=== PATIENT | female | born 1940 | race Caucasian/White ===

== ENCOUNTER 2019-11-04 12:52 | Inpatient (IN) | payer OTHER, SELFPAY ==
[~2019-11-04] VITALS: Ht 162.6 cm; Wt 50.3 kg
[2019-11-04 13:15] VITALS: Ht 162.6 cm; Wt 50.3 kg
[2019-11-04 14:33] LABS: BASOPHIL % 0.3 % (0-2)
[2019-11-04 14:38] LABS: PLATELET COUNT 115 x10^3mcL (130-400); RED CELL DISTRIBUTION WIDTH 15.3 % (11.5-14.5)
[2019-11-04 14:58] LABS: CALCIUM 7.9 mg/dL (8.5-10.1); CARBON DIOXIDE 26.9 mmol/L (21-32); CHLORIDE SERUM 95 mmol/L (98-107); CREATININE SERUM 0.9 mg/dL (0.6-1.0); GLUCOSE SERUM 81 mg/dL (74-106); POTASSIUM SERUM 3.8 mmol/L (3.5-5.1); SODIUM SERUM 131 mmol/L (136-145)
[2019-11-04 15:02] LABS: ALKALINE PHOSPHATASE 86 U/L (46-116); ALT/SGPT 32 U/L (14-59); AST/SGOT 64 U/L (15-37); BILIRUBIN TOTAL 0.4 mg/dL (0.20-1.00); C REACTIVE PROTEIN 7.2 mg/dL (<=0.9); LACTIC DEHYDROGENASE (LDH) 316 U/L (100-190); TOTAL PROTEIN, SERUM 6.7 g/dL (6.4-8.2)
[2019-11-04 15:05] LABS: ALBUMIN 3.2 g/dL (3.4-5.0)
[2019-11-05] MEDS ORDERED: TIROSINT13 MCG PO (03:30)
[2019-11-05] MEDS ORDERED: ZYRTEC ALLERGY10 MG PO (03:30)
[2019-11-05] MEDS ORDERED: ASPIRIN CHILDRE81 MG PO (03:30)
[2019-11-05] MEDS ORDERED: SEROQUEL50 M1 PO (03:31)
[2019-11-05] MEDS ORDERED: ARICEPT5 MG PO (03:31)
[2019-11-05] MEDS ORDERED: DEPAKOTE125 MG PO (03:31)
[2019-11-05] MEDS ORDERED: NAMENDA5 M1 PO (03:32)
[2019-11-05] MEDS ORDERED: ZESTRIL30 MG PO (03:32)
[2019-11-05] MEDS ORDERED: ZOLOFT25 MG PO (03:32)
[2019-11-05] MEDS ORDERED: PEPCID AC20 M2 PO (03:32)
[2019-11-05 08:18] LABS: ALKALINE PHOSPHATASE 66 U/L (46-116); ALT/SGPT 28 U/L (14-59); AST/SGOT 56 U/L (15-37); BILIRUBIN TOTAL 0.2 mg/dL (0.20-1.00); C REACTIVE PROTEIN 6.9 mg/dL (<=0.9); CALCIUM 7.5 mg/dL (8.5-10.1); CARBON DIOXIDE 23.9 mmol/L (21-32); CHLORIDE SERUM 100 mmol/L (98-107); CREATININE SERUM 0.9 mg/dL (0.6-1.0); GLUCOSE SERUM 114 mg/dL (74-106); MAGNESIUM 2.1 mg/dL (1.8-2.4); POTASSIUM SERUM 3.7 mmol/L (3.5-5.1); SODIUM SERUM 136 mmol/L (136-145)
[2019-11-05 08:25] LABS: ALBUMIN 2.7 g/dL (3.4-5.0); TOTAL PROTEIN, SERUM 5.8 g/dL (6.4-8.2)
[2019-11-05 09:51] LABS: BASOPHIL % 0.1 % (0-2)
[2019-11-05 09:53] LABS: RED CELL DISTRIBUTION WIDTH 15.4 % (11.5-14.5)
[2019-11-05 09:55] LABS: PLATELET COUNT 90 x10^3mcL (130-400)
[2019-11-06 05:21] LABS: BASOPHIL % 0.2 % (0-2)
[2019-11-06 05:22] LABS: ALKALINE PHOSPHATASE 62 U/L (46-116); ALT/SGPT 25 U/L (14-59); AST/SGOT 58 U/L (15-37); BILIRUBIN TOTAL 0.38 mg/dL (0.20-1.00); CALCIUM 7.5 mg/dL (8.5-10.1); CHLORIDE SERUM 101 mmol/L (98-107); CREATININE SERUM 0.6 mg/dL (0.6-1.0); GLUCOSE SERUM 93 mg/dL (74-106); MAGNESIUM 1.9 mg/dL (1.8-2.4); PHOSPHOROUS 2.9 mg/dL (2.5-4.9); PLATELET COUNT 90 x10^3mcL (130-400); POTASSIUM SERUM 3.7 mmol/L (3.5-5.1); RED CELL DISTRIBUTION WIDTH 14.8 % (11.5-14.5); SODIUM SERUM 134 mmol/L (136-145)
[2019-11-06 05:24] LABS: ALBUMIN 2.4 g/dL (3.4-5.0); TOTAL PROTEIN, SERUM 5.3 g/dL (6.4-8.2)
[2019-11-06 10:42] LABS: FREE T4 0.83 ng/dL (0.76-1.46)
[2019-11-06 23:59] LABS: UA SPECIFIC GRAVITY 1.025 (1.005-1.035); microscopic required? YES; urine erythrocyte 1+ (NEGATIVE)
[2019-11-07 00:03] LABS: AMPHETAMINE QUAL UR NONE DETECTED (See below)
[2019-11-07 09:27] VITALS: BP 98/43
[2019-11-07 09:46] VITALS: BP 109/45
[2019-11-07 12:21] VITALS: BP 104/43
[2019-11-07 15:49] VITALS: BP 92/44
[2019-11-07 16:06] LABS: PLATELET COUNT 98 x10^3mcL (130-400); RED CELL DISTRIBUTION WIDTH 14.9 % (11.5-14.5)
[2019-11-07 17:19] LABS: BAND NEUTROPHIL 3 % (0-10); MONOCYTE 1 % (0-7); SEGMENTED NEUTROPHILS 81 % (37-75)
[2019-11-07 17:20] LABS: rbc morphology (normal/abnorm) NORMAL (NORMAL)
[2019-11-07 17:51] VITALS: BP 117/52
[2019-11-07 20:15] VITALS: BP 116/56
[2019-11-08 05:46] VITALS: BP 112/40
[2019-11-08 06:32] LABS: BASOPHIL % 0.1 % (0-2)
[2019-11-08 06:42] LABS: PLATELET COUNT 90 x10^3mcL (130-400); RED CELL DISTRIBUTION WIDTH 15.5 % (11.5-14.5)
[2019-11-08 06:47] LABS: CALCIUM 7.8 mg/dL (8.5-10.1); CARBON DIOXIDE 27.1 mmol/L (21-32); CHLORIDE SERUM 101 mmol/L (98-107); CREATININE SERUM 0.8 mg/dL (0.6-1.0); GLUCOSE SERUM 81 mg/dL (74-106); MAGNESIUM 2.1 mg/dL (1.8-2.4); PHOSPHOROUS 2.9 mg/dL (2.5-4.9); POTASSIUM SERUM 3.4 mmol/L (3.5-5.1); SODIUM SERUM 138 mmol/L (136-145)
[2019-11-08 09:44] VITALS: BP 112/48
[2019-11-08 14:08] VITALS: BP 113/52
[2019-11-08 17:34] VITALS: BP 121/60
[2019-11-08 19:40] VITALS: BP 127/57
[2019-11-09 06:05] VITALS: BP 109/55
[2019-11-09 07:22] LABS: BASOPHIL % 0.1 % (0-2)
[2019-11-09 07:58] LABS: PLATELET COUNT 125 x10^3mcL (130-400); RED CELL DISTRIBUTION WIDTH 14.6 % (11.5-14.5)
[2019-11-09 07:59] LABS: CALCIUM 7.8 mg/dL (8.5-10.1); CARBON DIOXIDE 23.1 mmol/L (21-32); CHLORIDE SERUM 102 mmol/L (98-107); CREATININE SERUM 0.6 mg/dL (0.6-1.0); GLUCOSE SERUM 75 mg/dL (74-106); PHOSPHOROUS 2.6 mg/dL (2.5-4.9); POTASSIUM SERUM 3.5 mmol/L (3.5-5.1); SODIUM SERUM 137 mmol/L (136-145)
[2019-11-09 08:34] VITALS: BP 134/55
[2019-11-09 13:22] VITALS: BP 142/58
[2019-11-09 18:30] VITALS: BP 140/63
[2019-11-09 20:43] VITALS: BP 143/65
[2019-11-10 05:19] VITALS: BP 112/48
[2019-11-10 09:29] LABS: BASOPHIL % 0 % (0-2); PLATELET COUNT 166 x10^3mcL (130-400); RED CELL DISTRIBUTION WIDTH 15.1 % (11.5-14.5)
[2019-11-10 09:40] VITALS: BP 122/59
[2019-11-10 12:23] LABS: CALCIUM 8.2 mg/dL (8.5-10.1); CARBON DIOXIDE 21.7 mmol/L (21-32); CHLORIDE SERUM 104 mmol/L (98-107); CREATININE SERUM 0.7 mg/dL (0.6-1.0); GLUCOSE SERUM 68 mg/dL (74-106); MAGNESIUM 2.1 mg/dL (1.8-2.4); PHOSPHOROUS 3.2 mg/dL (2.5-4.9); POTASSIUM SERUM 3.5 mmol/L (3.5-5.1); SODIUM SERUM 141 mmol/L (136-145)
[2019-11-10 13:32] VITALS: BP 122/75
[2019-11-10 13:52] VITALS: BP 135/61
[2019-11-10 18:37] VITALS: BP 123/65
[2019-11-10 21:15] VITALS: BP 122/66
[2019-11-11 06:31] VITALS: BP 126/65
[2019-11-11 09:08] LABS: ALKALINE PHOSPHATASE 57 U/L (46-116); ALT/SGPT 27 U/L (14-59); AST/SGOT 52 U/L (15-37); BILIRUBIN TOTAL 0.36 mg/dL (0.20-1.00); CALCIUM 7.9 mg/dL (8.5-10.1); CARBON DIOXIDE 24.7 mmol/L (21-32); CHLORIDE SERUM 101 mmol/L (98-107); CREATININE SERUM 0.6 mg/dL (0.6-1.0); GLUCOSE SERUM 160 mg/dL (74-106); MAGNESIUM 2.2 mg/dL (1.8-2.4); PHOSPHOROUS 3.7 mg/dL (2.5-4.9); POTASSIUM SERUM 3.6 mmol/L (3.5-5.1); SODIUM SERUM 135 mmol/L (136-145)
[2019-11-11 09:10] VITALS: BP 118/61
[2019-11-11 09:11] LABS: ALBUMIN 1.9 g/dL (3.4-5.0); TOTAL PROTEIN, SERUM 5.5 g/dL (6.4-8.2)
[2019-11-11 09:53] LABS: BASOPHIL % 0 % (0-2); PLATELET COUNT 238 x10^3mcL (130-400); RED CELL DISTRIBUTION WIDTH 14.9 % (11.5-14.5)
[2019-11-11 10:19] LABS: C REACTIVE PROTEIN 20.1 mg/dL (<=0.9)
[2019-11-11 13:00] VITALS: BP 127/66
[2019-11-11 17:04] VITALS: BP 112/66
[2019-11-11 21:41] VITALS: BP 116/59
[2019-11-12 06:04] VITALS: BP 134/69
[2019-11-12 07:56] LABS: PLATELET COUNT 273 x10^3mcL (130-400)
[2019-11-12 08:27] LABS: CARBON DIOXIDE 25.8 mmol/L (21-32); CHLORIDE SERUM 103 mmol/L (98-107); GLUCOSE SERUM 133 mg/dL (74-106); POTASSIUM SERUM 3.2 mmol/L (3.5-5.1); SODIUM SERUM 137 mmol/L (136-145)
[2019-11-12 08:28] LABS: ALBUMIN 1.9 g/dL (3.4-5.0); ALT/SGPT 28 U/L (14-59); AST/SGOT 46 U/L (15-37); BILIRUBIN TOTAL 0.25 mg/dL (0.20-1.00); CALCIUM 7.7 mg/dL (8.5-10.1); CREATININE SERUM 0.8 mg/dL (0.6-1.0); PHOSPHOROUS 2.9 mg/dL (2.5-4.9); TOTAL PROTEIN, SERUM 5.2 g/dL (6.4-8.2)
[2019-11-12 08:29] LABS: ALKALINE PHOSPHATASE 55 U/L (46-116); C REACTIVE PROTEIN 7.4 mg/dL (<=0.9); MAGNESIUM 2.1 mg/dL (1.8-2.4)
[2019-11-12 08:54] LABS: BASOPHIL % 0 % (0-2)
[2019-11-12 09:10] VITALS: BP 121/64
[2019-11-12 13:30] VITALS: BP 136/76
[2019-11-12 18:22] VITALS: BP 116/72
[2019-11-12 21:12] VITALS: BP 117/60
[2019-11-13 06:00] VITALS: BP 122/58
[2019-11-13 06:55] LABS: PLATELET COUNT 315 x10^3mcL (130-400); RED CELL DISTRIBUTION WIDTH 14.4 % (11.5-14.5)
[2019-11-13 06:56] LABS: BASOPHIL % 0 % (0-2)
[2019-11-13 07:20] LABS: CALCIUM 8.1 mg/dL (8.5-10.1); CARBON DIOXIDE 26.5 mmol/L (21-32); CHLORIDE SERUM 105 mmol/L (98-107); CREATININE SERUM 0.7 mg/dL (0.6-1.0); GLUCOSE SERUM 97 mg/dL (74-106); MAGNESIUM 1.8 mg/dL (1.8-2.4); PHOSPHOROUS 2.1 mg/dL (2.5-4.9); POTASSIUM SERUM 3.3 mmol/L (3.5-5.1); SODIUM SERUM 141 mmol/L (136-145)
[2019-11-13 09:55] VITALS: BP 110/48
[2019-11-13 13:11] VITALS: BP 104/56
[2019-11-13 17:10] VITALS: BP 117/63
[2019-11-13 22:02] VITALS: BP 121/62
[2019-11-14 05:56] VITALS: BP 122/59
[2019-11-14 08:02] LABS: PLATELET COUNT 275 x10^3mcL (130-400); RED CELL DISTRIBUTION WIDTH 14.5 % (11.5-14.5)
[2019-11-14 08:03] LABS: BASOPHIL % 0 % (0-2)
[2019-11-14 08:12] LABS: CALCIUM 7.7 mg/dL (8.5-10.1); CARBON DIOXIDE 25.6 mmol/L (21-32); CHLORIDE SERUM 104 mmol/L (98-107); CREATININE SERUM 0.6 mg/dL (0.6-1.0); GLUCOSE SERUM 87 mg/dL (74-106); MAGNESIUM 1.8 mg/dL (1.8-2.4); PHOSPHOROUS 2.8 mg/dL (2.5-4.9); POTASSIUM SERUM 3.4 mmol/L (3.5-5.1); SODIUM SERUM 137 mmol/L (136-145)
[2019-11-14 09:40] VITALS: BP 146/62
[2019-11-14 14:01] VITALS: BP 132/66
[2019-11-14 18:29] VITALS: BP 135/75
[2019-11-14 21:42] VITALS: BP 128/63
[2019-11-15 05:39] VITALS: BP 127/68
[2019-11-15 08:00] VITALS: BP 135/60
[2019-11-15 12:00] VITALS: BP 144/73
[2019-11-15 23:29] VITALS: BP 115/62
[2019-11-16 06:12] VITALS: BP 117/47
[2019-11-16 07:27] LABS: C REACTIVE PROTEIN 5.3 mg/dL (<=0.9); CALCIUM 7.6 mg/dL (8.5-10.1); CARBON DIOXIDE 27.2 mmol/L (21-32); CHLORIDE SERUM 105 mmol/L (98-107); CREATININE SERUM 0.5 mg/dL (0.6-1.0); GLUCOSE SERUM 100 mg/dL (74-106); MAGNESIUM 1.7 mg/dL (1.8-2.4); PHOSPHOROUS 2.8 mg/dL (2.5-4.9); SODIUM SERUM 141 mmol/L (136-145)
[2019-11-16 07:31] LABS: BASOPHIL % 0.1 % (0-2); PLATELET COUNT 303 x10^3mcL (130-400); RED CELL DISTRIBUTION WIDTH 14.2 % (11.5-14.5)
[2019-11-16 07:46] LABS: POTASSIUM SERUM 2.9 mmol/L (3.5-5.1)
[2019-11-16 08:35] VITALS: BP 112/47
[2019-11-16 12:16] VITALS: BP 114/51
[2019-11-16] MEDS ORDERED: MVIL PO (13:39)
[2019-11-16] MEDS ORDERED: SYN125 PO (13:41)
[2019-11-16] MEDS ORDERED: DEC4I IV (13:42)
[2019-11-16] MEDS ORDERED: MEMANTINE HCL10 MG PO (13:44)
[2019-11-16] MEDS ORDERED: QUETIAPINE FUMA25 M1 PO (13:45)
[2019-11-16] MEDS ORDERED: SERTRALINE50 M1 PO (13:46)
[2019-11-16] MEDS ORDERED: METOPROLOL TART25 M1 PO (13:47)
[2019-11-16] MEDS ORDERED: DEP125 PO (13:47)
[2019-11-16] MEDS ORDERED: ATORVASTATIN CA40 M1 PO (13:48)
[2019-11-16] MEDS ORDERED: LOV60I SC (13:58)
[2019-11-16] MEDS ORDERED: VENTOLIN H0.09 MG/A1 INH (13:59)
[2019-11-16] MEDS ORDERED: LEVAQUIN500 M1 IV (14:05)
[2019-11-16] MEDS ORDERED: ECO81 PO (14:07)
[2019-11-16 16:32] VITALS: BP 131/52
[2019-11-16 20:11] VITALS: BP 113/44
[2019-11-16 20:44] LABS: CARBON DIOXIDE 26.4 mmol/L (21-32); CHLORIDE SERUM 107 mmol/L (98-107); CREATININE SERUM 0.7 mg/dL (0.6-1.0); GLUCOSE SERUM 181 mg/dL (74-106); SODIUM SERUM 140 mmol/L (136-145)
[2019-11-17 04:23] VITALS: BP 134/67
[2019-11-17 08:43] LABS: CALCIUM 7.8 mg/dL (8.5-10.1); CARBON DIOXIDE 28.7 mmol/L (21-32); CHLORIDE SERUM 109 mmol/L (98-107); CREATININE SERUM 0.6 mg/dL (0.6-1.0); GLUCOSE SERUM 75 mg/dL (74-106); MAGNESIUM 1.9 mg/dL (1.8-2.4); PHOSPHOROUS 3.5 mg/dL (2.5-4.9); POTASSIUM SERUM 3.8 mmol/L (3.5-5.1); SODIUM SERUM 143 mmol/L (136-145)
[2019-11-17 09:08] VITALS: BP 143/55
[2019-11-17 09:50] LABS: BASOPHIL % 0.5 % (0-2); PLATELET COUNT 327 x10^3mcL (130-400); RED CELL DISTRIBUTION WIDTH 14.7 % (11.5-14.5)
[2019-11-17 11:13] VITALS: BP 143/55
[2019-11-17 11:48] VITALS: BP 140/74
[2019-11-17 15:55] VITALS: BP 118/67
[2019-11-17 19:47] VITALS: BP 127/59
[2019-11-18 04:16] VITALS: BP 95/67
[2019-11-18 08:41] VITALS: BP 110/56
[2019-11-18 11:10] LABS: CALCIUM 7.9 mg/dL (8.5-10.1); CARBON DIOXIDE 28.1 mmol/L (21-32); CHLORIDE SERUM 105 mmol/L (98-107); CREATININE SERUM 0.7 mg/dL (0.6-1.0); GLUCOSE SERUM 194 mg/dL (74-106); MAGNESIUM 1.9 mg/dL (1.8-2.4); PHOSPHOROUS 4.4 mg/dL (2.5-4.9); POTASSIUM SERUM 4.2 mmol/L (3.5-5.1); SODIUM SERUM 141 mmol/L (136-145)
[2019-11-18 11:33] LABS: BASOPHIL % 0 % (0-2); PLATELET COUNT 423 x10^3mcL (130-400); RED CELL DISTRIBUTION WIDTH 14.8 % (11.5-14.5)
[2019-11-18 12:16] VITALS: BP 100/53
[2019-11-18 16:28] VITALS: BP 110/49
[2019-11-18 20:07] VITALS: BP 109/44
[2019-11-19 04:23] VITALS: BP 113/51
[2019-11-19 07:20] LABS: BASOPHIL % 0.3 % (0-2); PLATELET COUNT 334 x10^3mcL (130-400)
[2019-11-19 07:27] LABS: RED CELL DISTRIBUTION WIDTH 14.6 % (11.5-14.5)
[2019-11-19 07:45] LABS: C REACTIVE PROTEIN 2.4 mg/dL (<=0.9); CALCIUM 7.8 mg/dL (8.5-10.1); CARBON DIOXIDE 29.7 mmol/L (21-32); CHLORIDE SERUM 106 mmol/L (98-107); CREATININE SERUM 0.6 mg/dL (0.6-1.0); GLUCOSE SERUM 110 mg/dL (74-106); PHOSPHOROUS 3.2 mg/dL (2.5-4.9); POTASSIUM SERUM 3.7 mmol/L (3.5-5.1); SODIUM SERUM 140 mmol/L (136-145)
[2019-11-19 09:01] VITALS: BP 119/65
[2019-11-19 12:03] LABS: PATH REVIEW for HEMA NO
[2019-11-19 12:24] VITALS: BP 138/56
[2019-11-19 16:20] VITALS: BP 122/65
[2019-11-19 21:02] VITALS: BP 132/57
[2019-11-20 05:55] VITALS: BP 118/53
[2019-11-20 08:20] LABS: CARBON DIOXIDE 29.5 mmol/L (21-32); CHLORIDE SERUM 105 mmol/L (98-107); CREATININE SERUM 0.5 mg/dL (0.6-1.0); GLUCOSE SERUM 90 mg/dL (74-106); MAGNESIUM 2.2 mg/dL (1.8-2.4); PHOSPHOROUS 3.4 mg/dL (2.5-4.9); POTASSIUM SERUM 3.9 mmol/L (3.5-5.1); SODIUM SERUM 141 mmol/L (136-145)
[2019-11-20 08:44] VITALS: BP 118/52
[2019-11-20 09:06] LABS: BASOPHIL % 0.5 % (0-2); PLATELET COUNT 259 x10^3mcL (130-400)
[2019-11-20 09:15] LABS: RED CELL DISTRIBUTION WIDTH 15.1 % (11.5-14.5)
[2019-11-20 12:30] VITALS: BP 127/75
[2019-11-20 16:35] VITALS: BP 137/55
[2019-11-20 18:52] VITALS: BP 137/55
[2019-11-20 20:45] VITALS: BP 156/92
[2019-11-21 05:30] VITALS: BP 144/51
[2019-11-21 07:14] LABS: BASOPHIL % 0.3 % (0-2); PLATELET COUNT 298 x10^3mcL (130-400)
[2019-11-21 07:21] LABS: RED CELL DISTRIBUTION WIDTH 14.8 % (11.5-14.5)
[2019-11-21 07:31] LABS: CALCIUM 8.1 mg/dL (8.5-10.1); CARBON DIOXIDE 32.8 mmol/L (21-32); CHLORIDE SERUM 106 mmol/L (98-107); CREATININE SERUM 0.6 mg/dL (0.6-1.0); GLUCOSE SERUM 89 mg/dL (74-106); MAGNESIUM 2.3 mg/dL (1.8-2.4); PHOSPHOROUS 3.1 mg/dL (2.5-4.9); POTASSIUM SERUM 4.4 mmol/L (3.5-5.1); SODIUM SERUM 142 mmol/L (136-145)
[2019-11-21 08:49] VITALS: BP 150/69
[2019-11-21 12:31] VITALS: BP 117/69
[2019-11-21 16:46] VITALS: BP 155/80
[2019-11-21 19:55] VITALS: BP 119/46
[2019-11-22 06:02] VITALS: BP 123/63
[2019-11-22 07:31] LABS: BASOPHIL % 0.3 % (0-2); PLATELET COUNT 284 x10^3mcL (130-400)
[2019-11-22 07:59] LABS: CALCIUM 7.9 mg/dL (8.5-10.1); CARBON DIOXIDE 28.8 mmol/L (21-32); CHLORIDE SERUM 106 mmol/L (98-107); CREATININE SERUM 0.7 mg/dL (0.6-1.0); GLUCOSE SERUM 102 mg/dL (74-106); MAGNESIUM 2.3 mg/dL (1.8-2.4); PHOSPHOROUS 3.6 mg/dL (2.5-4.9); POTASSIUM SERUM 3.8 mmol/L (3.5-5.1); SODIUM SERUM 140 mmol/L (136-145)
[2019-11-22 09:14] VITALS: BP 123/63
[2019-11-22 11:56] VITALS: BP 136/60
[2019-11-22 16:36] VITALS: BP 136/60
[2019-11-22 17:11] VITALS: BP 129/61
== END 2019-11-22 20:00 | DRG 177 ==
LOC: ED 12:52 → DU 16:03 → ED 16:03 → DU 16:03 → IC 16:03 → DU 11-07 06:47
PROVIDERS: Emergency Medicine; Internal Medicine; Internal Medicine Cardiovascular Disease; ADMIT Family Medicine; ATTEND Family Medicine
PROC: 30233L1 Transfusion of Nonautologous Fresh Plasma into Peripheral Vein, Percutaneous Approach (ICD-10-PCS; principal; 2019-11-04)
DX: U07.1 COVID-19 (principal); G93.41 Metabolic encephalopathy; I21.A1 Myocardial infarction type 2; J96.01 Acute respiratory failure with hypoxia; E87.1 Hypo-osmolality and hyponatremia; I24.9 Acute ischemic heart disease, unspecified; N39.0 Urinary tract infection, site not specified; I47.1 Supraventricular tachycardia; F20.9 Schizophrenia, unspecified; F03.90 Unspecified dementia, unspecified severity, without behavioral disturbance, psychotic disturbance, mood disturbance, and anxiety; E03.9 Hypothyroidism, unspecified; F29 Unspecified psychosis not due to a substance or known physiological condition; D64.9 Anemia, unspecified; B96.20 Unspecified Escherichia coli [E. coli] as the cause of diseases classified elsewhere; D69.6 Thrombocytopenia, unspecified; I05.0 Rheumatic mitral stenosis; I10 Essential (primary) hypertension; Z79.899 Other long term (current) drug therapy; Z79.82 Long term (current) use of aspirin; Z79.01 Long term (current) use of anticoagulants
CPT/HCPCS: 82962; 83880; 84439; 85378; 97110-GP; 97530-GP; G0378; J0153; J1100; J1644; J1650; J1956; J2060; J3480; J3490; J3535; J7030; J8540; Q0092; U0003-CS